=== PATIENT | female | born 1985 | race Two or more races ===

== ENCOUNTER 2018-06-09 12:28 | Emergency (ER) | payer OTHER ==
[~2018-06-09] VITALS: Ht 154.9 cm; Wt 72.6 kg
[~2018-06-09 12:28] MED LIST: IBUP800 PO; NEWMANS OINTMENT
[2018-06-09] MEDS ORDERED: CEPH500 PO (13:50)
[2018-06-09] MEDS ORDERED: Naprosyn500 MG PO (13:50)
== END 2018-06-09 13:58 | disposition home or self-care (01) ==
LOC: ER 12:28
DX: L60.0 Ingrowing nail (principal)
CPT/HCPCS: 99282